=== PATIENT | female | born 1960 | race Caucasian/White ===

== ENCOUNTER 2017-11-18 14:52 | Emergency (ER) | payer MEDICAID ==
[~2017-11-18] VITALS: Ht 162.6 cm; Wt 70.8 kg
[2017-11-18 14:56] VITALS: Ht 162.6 cm; Wt 70.8 kg
[2017-11-18 16:27] VITALS: BP 144/97
== END 2017-11-18 16:27 | disposition home or self-care (01) ==
LOC: ED 14:52
DX: F41.9 Anxiety disorder, unspecified (principal); I10 Essential (primary) hypertension; E05.90 Thyrotoxicosis, unspecified without thyrotoxic crisis or storm; F31.9 Bipolar disorder, unspecified